=== PATIENT | female | born 1970 | race Two or more races ===

== ENCOUNTER 2020-06-28 01:34 | Emergency (ER) | payer SELFPAY ==
[~2020-06-28] VITALS: Ht 170.2 cm; Wt 100.0 kg
[2020-06-28] MEDS ORDERED: ONDANSETRON 4MG ODT PO ONE (02:30)
[2020-06-28] MEDS ORDERED: AZITHROMYCIN 500 MG TABLET PO ONE (03:30)
[2020-06-28 03:43] VITALS: BP 131/79
== END 2020-06-28 03:46 | disposition home or self-care (01) ==
LOC: ER 01:34
DX: U07.1 COVID-19 (principal); J18.9 Pneumonia, unspecified organism; R00.0 Tachycardia, unspecified
CPT/HCPCS: 71045; 81025; 93005; 99283; Q0162